=== PATIENT | female | born 1935 ===

== ENCOUNTER 2018-09-21 15:48 | Emergency (ER) | payer MEDICARE ==
[2018-09-21 15:55] VITALS: PULSE 71
--- NOTE | 2018-09-21 16:39 | ED PDOC ---
Syncope/Near Syncope/Dizziness Time Seen by Provider: 09/21/18 16:04 Chief Complaint (Nursing): Abdominal Pain Chief Complaint (Provider): Syncope History Per: Patient, Family History/Exam Limitations: no limitations Additional Complaint(s): Pt presents with daughter who states @ 3:30 PM today pt was on toilet trying to have BM when she called her over saying she was going to faint. Pt had 3 syncopal episodes and stopped breathing for 15 seconds, no seizure-like activity, no postictal period. Pt feels better at this time. Denies CP, SOB, palpitations, DAVIS, paresthesias, weakness, nausea, vomiting. Against Medical Advice - AMA Patient Left Against Medical Advice: The patient declines admission to the hospital and wishes to leave the Emergency Department. This action is against my medical advice. This decision was made with informed refusal. The patient was told that admission to the hospital is necessary. Explanation of the reasons why were discussed. The risks of leaving were explained to the patient and include, but are not limited to, worsening of known or currently unknown conditions, permanent disability and from undiagnosed or untreated conditions. The patient has the capacity to make this informed decision and understands my explanation of the current medical problem and risks of leaving. The patient voluntarily accepts these risks and signed an AMA form documenting our conversation. The patient was given the opportunity to ask questions and reconsider. The patient was encouraged to return to the Emergency Department at any time for further care. Copy of labs and imaging given to patient and family. Past Medical History Reviewed: Nursing Documentation, Vital Signs Vital Signs: Last Vital Signs Temp 97.6 F 09/21/18 15:52 Pulse 71 09/21/18 15:52 Resp 16 09/21/18 15:52 BP 132/74 09/21/18 15:52 Pulse Ox 94 L 09/21/18 15:52 - Medical History PMH: Anxiety, HTN - Surgical History Surgical History: Appendectomy, Cholecystectomy Other surgeries: Hysterectomy - Family History Family History: States: Unknown Family Hx - Living Arrangements Living Arrangements: With Family - Social History Current smoker - smoking cessation education provided: No Alcohol: None - Home Medications Home Medications: Ambulatory Orders Medication Instructions Recorded Ciprofloxacin [Cipro] 500 mg PO BID #19 tab 09/21/18 metroNIDAZOLE [Flagyl] 500 mg PO TID #29 tab 09/21/18 - Allergies Allergies/Adverse Reactions: Allergies Allergy/AdvReac Type Severity Reaction Status Date / Time codeine Allergy other Verified 09/21/18 15:55 Sulfa (Sulfonamide Allergy RASH Verified 09/21/18 15:55 Antibiotics) Review of Systems Constitutional: Negative for: Fever, Chills Eyes: Negative for: Vision Change Cardiovascular: Negative for: Chest Pain, Palpitations Respiratory: Negative for: Cough, Shortness of Breath Gastrointestinal: Positive for: Abdominal Pain, Diarrhea. Negative for: Nausea, Vomiting Genitourinary Female: Negative for: Dysuria, Hematuria Musculoskeletal: Negative for: Neck Pain, Back Pain Skin: Negative for: Rash, Lesions Neurological: Negative for: Weakness, Numbness, Incoordination, Change in Speech, Confusion, Seizures, Altered Mental Status, Headache, Dizziness Physical Exam - Reviewed Nursing Documentation Reviewed: Yes Vital Signs Reviewed: Yes - Physical Exam Appears: Positive for: Well, No Acute Distress Head Exam: Positive for: ATRAUMATIC, NORMAL INSPECTION Skin: Positive for: Normal Color, Warm, Dry Eye Exam: Positive for: Normal appearance, EOMI, PERRL Neck: Positive for: Normal Cardiovascular/Chest: Positive for: Regular Rate, Rhythm, Murmur Respiratory: Positive for: Normal Breath Sounds. Negative for: Rales, Rhonchi, Wheezing Gastrointestinal/Abdominal: Positive for: Bowel Sounds, Soft, Tenderness (Mild generalized (>LLQ)), Other (No pulsatile mass). Negative for: Distended, Guarding, Rebound Back: Positive for: Normal Inspection Extremity: Positive for: Normal ROM Neurologic/Psych: Positive for: Alert, box worker II-XII, Oriented. Negative for: Motor/Sensory Deficits, Aphasia, Facial Droop - Laboratory Results Result Diagrams: 09/21/18 16:56 09/21/18 16:56 - ECG O2 Sat by Pulse Oximetry: 94 Medical Decision Making Medical Decision Makin yo female with syncopal episodes. - labs - EKG - CXR - CT head - CT abd/pelvis CT Head: Impression: No acute intracranial abnormality. CT Abd/Pelvis: Impression: 1. Small hiatial hernia. Bibasilar atelectasis versus scarring. Heart is moderately enlarged. 2. A 1.5 cm cyst is present at the hepatic dome laterally. 3. Status post cholecystectomy. 4. Both kidneys are markedly lobulated. Bilateral renal cysts. 5. There is diffuse diverticulosis noted involving descending and sigmoid colon. There are very mild inflammatory changes present adjacent to the several sigmoid diverticula suggestive of very early or mild diverticulitis. 6. While the appendix is not identified with certainty, no definite evidence of acute appendicitis. 7. Very small fat containing umbilical hernia is seen. Disposition - Clinical Impression Clinical Impression: Syncope, Diverticulitis - Disposition Disposition: Against Medical Advice Disposition Time: 20:55 Condition: UNKNOWN Prescriptions: Ciprofloxacin [Cipro] 500 mg PO BID #19 tab metroNIDAZOLE [Flagyl] 500 mg PO TID #29 tab Forms: [employer] (Welsh)
[2018-09-21 17:01] LABS: BASO # 0.1 K/uL (0.0-0.2); BASO % 1.1 % (0.0-2.0); EOS # 0.1 K/uL (0.0-0.7); EOS % 2.2 % (0.0-4.0); HEMOGLOBIN 12.9 g/dL (12.0-16.0); LYMPH # 1.5 K/uL (1.0-4.3); LYMPH % 25.7 % (20.0-40.0); MEAN CELL VOLUME 86.1 fl (81.0-99.0); MEAN CORPUSCULAR HEMOGLOBIN 28.9 pg (27.0-31.0); MEAN CORPUSCULAR HGB CONC 33.5 g/dL (33.0-37.0); MONO # 0.4 K/uL (0.0-0.8); NEUT # 3.9 K/uL (1.8-7.0); NRBC % 0.1 % (0.0-0.0); RBC 4.45 Mil/uL (3.80-5.20); RED CELL DISTRIBUTION WIDTH 13.5 % (11.5-14.5)
[2018-09-21 17:12] LABS: INR 1.1; PROTHROMBIN TIME 12.1 Seconds (9.8-13.1)
[2018-09-21 17:13] LABS: ALB/GLOB RATIO 1.3 (1.0-2.1); ALBUMIN 4.2 g/dL (3.5-5.0); ALT/SGPT 26 U/L (9-52); AST/SGOT 29 U/L (14-36); BLOOD UREA NITROGEN 17 mg/dl (7-17); CALCIUM 9.5 mg/dL (8.4-10.2); GFR NON-AFRICAN AMERICAN 48; LIPASE 70 U/L (23-300)
[2018-09-21 17:15] LABS: PARTIAL THROMBOPLASTIN TIME 31.7 Seconds (25.6-37.1)
--- NOTE | 2018-09-21 17:30 | RAD ---
Date of service: 09/21/2018 HISTORY: Syncope COMPARISON: No prior. FINDINGS: LUNGS: No active pulmonary disease. PLEURA: No significant pleural effusion identified, no pneumothorax apparent. CARDIOVASCULAR: Aortic atherosclerotic calcifications. Cardiomediastinal silhouette enlarged OSSEOUS STRUCTURES: Spinal degenerative changes. VISUALIZED UPPER ABDOMEN: Normal. OTHER FINDINGS: None. IMPRESSION: No active disease.
[2018-09-21] MEDS ORDERED: Iohexol 300 100 ML IJ ONE (18:40)
[2018-09-21] MEDS ORDERED: Sodium Chloride 0.9% 50 ML IV ONE (18:40)
[2018-09-21 18:51] LABS: SQUAMOUS EPITHIAL < 1 /hpf (0-5); URINE BACTERIA RARE (<OCC); URINE BILIRUBIN NEGATIVE (NEGATIVE); URINE BLOOD NEGATIVE (NEGATIVE); URINE CLARITY CLEAR (Clear); URINE COLOR YELLOW (YELLOW); URINE GLUCOSE (UA) NEG (Normal); URINE LEUKOCYTE ESTERASE NEG Leu/uL (Negative); URINE PROTEIN 30 mg/dL (NEGATIVE); URINE UROBILINOGEN 0.2-1.0 mg/dL (0.2-1.0)
[2018-09-21] MEDS ORDERED: Ciprofloxacin 400mg/200ml D5W 400 MG/200 ML BAG IV STA (20:22)
[2018-09-21] MEDS ORDERED: metroNIDAZOLE 500mg/100ml NS 100 ML IV STA (20:22)
[2018-09-21 21:44] VITALS: BP 128/76; RESP 17; TEMP 98.5; O2SAT 97
--- NOTE | 2018-09-22 08:51 | CARD ---
APPROVED REPORT Date of service: 09/21/2018 EKG Measurement Heart [id number] ID [id number] <Conclusion> Normal sinus rhythm ST & T wave abnormality, consider anterolateral ischemia Abnormal ECG
--- NOTE | 2018-09-22 09:46 | CT ---
Date of service: 09/21/2018 PROCEDURE: CT HEAD WITHOUT CONTRAST. HISTORY: Syncope COMPARISON: None available. TECHNIQUE: Axial computed tomography images were obtained through the head/brain without intravenous contrast. Radiation dose: Total exam DLP = 704.3 mGy-cm. This CT exam was performed using one or more of the following dose reduction techniques: Automated exposure control, adjustment of the mA and/or kV according to patient size, and/or use of iterative reconstruction technique. FINDINGS: HEMORRHAGE: No intracranial hemorrhage. BRAIN: No mass effect or edema. No atrophy or chronic microvascular ischemic changes. VENTRICLES: Unremarkable. No hydrocephalus. CALVARIUM: Unremarkable. PARANASAL SINUSES: Unremarkable as visualized. No significant inflammatory changes. MASTOID AIR CELLS: Unremarkable as visualized. No inflammatory changes. OTHER FINDINGS: None. IMPRESSION: Normal CT of the Head.
--- NOTE | 2018-09-22 09:49 | CT ---
Date of service: 09/21/2018 PROCEDURE: CT Abdomen and Pelvis with and without intravenous contrast HISTORY: Abd pain, syncope COMPARISON: None. TECHNIQUE: Axial images of the abdomen were obtained in the pre contrast, portal venous and delayed phases of enhancement. Coronal and sagittal reformats were generated. Contrast dose: Radiation dose: Total exam DLP = 651.2 mGy-cm. This CT exam was performed using one or more of the following dose reduction techniques: Automated exposure control, adjustment of the mA and/or kV according to patient size, and/or use of iterative reconstruction technique. FINDINGS: LOWER THORAX: Small hiatal hernia. LIVER: Small right hepatic cyst. GALLBLADDER AND BILE DUCTS: Cholecystectomy. PANCREAS: Unremarkable. No gross lesion or ductal dilatation. SPLEEN: Unremarkable. ADRENALS: Unremarkable. No mass. KIDNEYS AND URETERS: Unremarkable. No hydronephrosis. No solid mass. VASCULATURE: Unremarkable. No aortic aneurysm. No aortic atherosclerotic calcification or mural plaque present. BOWEL: Sigmoid colon diverticulosis.. No obstruction. No gross mural thickening. APPENDIX: Normal appendix. PERITONEUM: Unremarkable. No free fluid. No free air. LYMPH NODES: Unremarkable. No enlarged lymph nodes. BLADDER: Unremarkable. REPRODUCTIVE: Cholecystectomy. BONES: No acute fracture. OTHER FINDINGS: None. IMPRESSION: No acute pathology.
== END 2018-09-21 21:35 | disposition left against medical advice (07) ==
LOC: H.ER 15:48
DX: R55 Syncope and collapse (principal); K57.90 Diverticulosis of intestine, part unspecified, without perforation or abscess without bleeding; K42.9 Umbilical hernia without obstruction or gangrene; N28.1 Cyst of kidney, acquired; I10 Essential (primary) hypertension
CPT/HCPCS: 70450; 71045; 74177; 80053; 81003; 82948; 83690; 84484; 85025; 85610; 85730; 93005; 99284; Q9967